=== PATIENT | male | born 1970 | race Caucasian/White ===

== ENCOUNTER 2022-02-13 09:44 | Emergency (ER) | payer OTHER, SELFPAY ==
--- NOTE | ~2022-02-13 | XR_ITS ---
EXAMINATION: XR knee RT 3V DATE: 02/13/2022 10:14 INDICATION: Right knee pain. Fall. TECHNIQUE: 3 views of right knee were obtained. COMPARISON: None. FINDINGS: Bone alignment is normal. No fracture. There is mild osteoarthritis of lateral and patellof emoral compartments characterized by tiny osteophytes. No joint space narrowing. No knee joint effusi on. IMPRESSION: 1. Mild right knee osteoarthritis. Reviewed, dictated and finalized at location A.
[2022-02-13 09:56] VITALS: BP 156/95; PULSE 58; RESP 16; TEMP 36.1; O2SAT 100
--- NOTE | 2022-02-13 10:01 | ED.GENADULT ---
HPI - General Adult General Chief complaint: Extremity Injury, Lower Stated complaint: Right Knee Injury Time Seen by Provider: 02/13/22 09:58 Source: patient Mode of arrival: ambulatory Limitations: no limitations History of Present Illness HPI narrative: Patient is a 51-year-old male who presents to the ED with report of right knee pain. Patient reports he has had issues with pain in his right knee for the past couple weeks. He assumed this was just from working long hours. Yesterday, he reports he tripped and stepped half on/off a rock, twisting his right knee in the process. He reports having increased pain since then, worst medially. He states he had difficulty sleeping last night due to the pain. He did not fall, hit his head, or lose consciousness. He has taken ibuprofen at home, but has not taken anything since 3 AM this morning. He also has been utilizing a compression bandage. No other injuries. No numbness, tingling. No swelling or calf pain. Related Data Allergies Allergy/AdvReac Type Severity Reaction Status Date / Time No Known Allergies Allergy Verified 02/13/22 10:02 Review of Systems Review of Systems: CONSTITUTIONAL: Denies fever. GASTROINTESTINAL: Denies abdominal pain, nausea, vomiting. SKIN: Denies swelling, wounds. MUSCULOSKELETAL: Reports right knee pain, worst medially. Denies back pain, calf pain. NEUROLOGIC: Denies tingling, numbness, or weakness. All systems reviewed & are unremarkable except as noted in HPI and below PMFSH Past Medical History Medical History (Updated 02/13/22 @ 10:44 by Makeda Calderon PA-C) No pertinent past medical history Surgical History Surgical History (Updated 02/13/22 @ 10:40 by Makeda Calderon PA-C) History of appendectomy History of shoulder surgery Social History Social History (Updated 02/13/22 @ 10:41 by Makeda Calderon PA-C) Smoking status: Current every day smoker Exam Narrative: GENERAL: Well appearing, well-nourished, non-toxic, in no acute distress. HEAD: Normocephalic, atraumatic. NECK: Supple. No adenopathy, no masses. RESPIRATORY: Airway patent, respirations nonlabored. CARDIOVASCULAR: Regular rate and rhythm without murmurs, rubs, or gallops. Peripheral pulses 2+ and equal bilaterally. MUSCULOSKELETAL: Moves all extremities. Strength/ROM intact without gross deformities. Minimal limited flexion of R knee due to pain. Tenderness to palpation in medial right knee joint space. Minimal swelling in R knee joint space. No pain with ballottement of patella. No calf tenderness or swelling. No swelling in right lower leg. Mild pain with valgus stress testing. SKIN: Warm, dry, normal color. No rashes. NEURO: A&O X3. Speech clear. Cranial nerves II-XII grossly intact. Steady gait. No ataxic movements. PSYCHIATRIC: Appropriate mood and affect. Normal interaction. Course Vital Signs Vital signs: Vital Signs Temperature 96.9 F L 02/13/22 09:56 Pulse Rate 58 L 02/13/22 09:56 Respiratory Rate 16 02/13/22 09:56 Blood Pressure 156/95 H 02/13/22 09:56 Pulse Oximetry 100 02/13/22 09:56 Oxygen Delivery Room Air 02/13/22 09:56 Temperature 96.9 F L 02/13/22 09:56 Pulse Rate 58 L 02/13/22 09:56 Respiratory Rate 16 02/13/22 09:56 Blood Pressure 156/95 H 02/13/22 09:56 Pulse Oximetry 100 02/13/22 09:56 Oxygen Delivery Room Air 02/13/22 09:56 Medical Decision Making MDM Narrative Medical decision making narrative: Patient presented to ED with acute on chronic right knee pain after sustaining a recent twisting injury. VSS upon arrival. Patient does have tenderness along medial joint line of right knee. Minimal swelling on exam. X-ray right knee shows arthritis, but no significant joint effusion or fracture. I did discuss with patient limitations of x-ray imaging and advised that if he continues to have pain he may need to follow-up with orthopedics for potential MRI to evaluate for ligamentous or meniscal i
--- NOTE | 2022-02-13 10:10 | PC.NURSE ---
Patient off unit to radiology.
--- NOTE | 2022-02-13 10:22 | PC.NURSE ---
EDP at bedside to assess pt.
[2022-02-13] MEDS: KETOROLAC (*BKC) 60 MG/2 ML VIAL IM (11:20)
== END 2022-02-13 12:17 | disposition home or self-care (01) ==
PROVIDERS: Emergency Provider Emergency Medicine
DX: M25.561 Pain in right knee (principal); M19.90 Unspecified osteoarthritis, unspecified site
CPT/HCPCS: 73562; 96372; 99283; J1885